=== PATIENT | male | born 1980 | race Caucasian/White ===

== ENCOUNTER 2019-05-12 11:20 | Emergency (ER) | payer BC ==
[2019-05-12 13:20] VITALS: BP 137/81
--- NOTE | 2019-05-12 13:39 | UC ---
Skin Complaint HPI - HPI Summary HPI Summary: inner aspect of left knee with possible infection. Noted pimple size area red, now much larger. red, raised , almost purple with blitering imminent. tendar with head. hot, not drainng. 6cm area round. takes daily med for colitis. - History of Current Complaint Chief Complaint: UCSkin Time Seen by Provider: 05/12/19 13:05 Stated Complaint: SKIN COMPLAINT Hx Obtained From: Patient Onset/Duration: Sudden Onset, Lasting Days Skin Exposure Onset/Duration: Days Ago Timing: Constant Onset Severity: Mild Current Severity: Moderate Pain Intensity: 3 - Allergy/Home Medications Allergies/Adverse Reactions: Allergies Allergy/AdvReac Type Severity Reaction Status Date / Time No Known Allergies Allergy Verified 05/12/19 13:21 Home Medications: Home Medications Mesalamine DR SERNA* [Mesalamine CAP* (formerly ASACOL TAB)*] 800 mg PO BID [History Confirmed 05/12/19] PMH/Surg Hx/FS Hx/Imm Hx Previously Healthy: Yes - Surgical History Surgical History: None - Family History Known Family History: Positive: Hypertension - Social History Alcohol Use: Daily Substance Use Type: None Smoking Status (MU): Never Smoked Tobacco Review of Systems All Other Systems Reviewed And Are Negative: Yes Musculoskeletal: Positive: Arthralgia, Myalgia Is Patient Immunocompromised?: No Physical Exam Triage Information Reviewed: Yes Appearance: Well-Appearing, Well-Nourished, Pain Distress Vital Signs: Initial Vital Signs Temp 98.9 F 05/12/19 13:12 Pulse 82 05/12/19 13:12 Resp 16 05/12/19 13:12 BP 137/81 05/12/19 13:12 Pulse Ox 98 05/12/19 13:12 Vital Signs Reviewed: Yes Eye Exam: Normal ENT Exam: Normal Dental Exam: Normal Neck exam: Normal Respiratory Exam: Normal Cardiovascular Exam: Normal Cardiovascular: Positive: RRR, No Murmur, Pulses Normal Abdominal Exam: Normal Musculoskeletal Exam: Normal Neurological Exam: Normal Psychological Exam: Normal Skin: Positive: Significant Lesion(s) - abscess from ingrown hair on left knee Course/Dx - Course Course Of Treatment: history obtained, exam performed, meds reviewed, treated for abscess - Differential Diagnoses - Skin Complaint Differential Diagnoses: Abscess - Diagnoses Provider Diagnosis: Abscess Discharge ED - Sign-Out/Discharge Documenting (check all that apply): Patient Departure All imaging exams completed and their final reports reviewed: No Studies - Discharge Plan Condition: Stable Disposition: HOME Prescriptions: Cephalexin CAP* [Keflex CAP*] 500 mg PO TID #21 cap Patient Education Materials: Abscess (ED) Referrals: René Clark MD [Primary Care Provider] - Additional Instructions: 1. Take the medication as prescribed. 2. Warm compresses to the area twice a day 3. FOllow up if not improving. - Billing Disposition and Condition Condition: STABLE Disposition: Home
== END 2019-05-12 13:46 | disposition home or self-care (01) ==
LOC: UCEAST 11:20
DX: L02.416 Cutaneous abscess of left lower limb (principal)
CPT/HCPCS: 99212; G0463

== ENCOUNTER 2019-05-14 18:27 | Inpatient (IN) | payer BC ==
--- NOTE | 2019-05-14 19:19 | ED ---
Lower Extremity - HPI Summary HPI Summary: Pt is a 38 y/o M presenting to the ED with a chief complaint of L knee pain initially onset about 1 week ago. He states it started looking like a pimple and then grew over the course of the next couple of days, encompassing the entire knee. He went to on 05/12/19 where he was given Keflex, but it has since become more swollen, red, and painful. Noted pt is slightly febrile on triage. - History of Current Complaint Chief Complaint: EDExtremityLower Stated Complaint: LT KNEE INFECTION PER PT Time Seen by Provider: 05/14/19 19:11 Hx Obtained From: Patient Mechanism Of Injury: Unknown Onset of Pain: Days Onset/Duration: Still Present Severity Initially: Moderate Severity Currently: Severe Pain Intensity: 7 Pain Scale Used: 0-10 Numeric Timing: Constant, Lasting Days Location: Is Discrete @ - L knee Associated Signs And Symptoms: Positive: Swelling, Redness, Fever, Knee Pain Aggravating Factor(s): Nothing Alleviating Factor(s): Nothing Able to Bear Weight: Yes - Allergies/Home Medications Allergies/Adverse Reactions: Allergies Allergy/AdvReac Type Severity Reaction Status Date / Time No Known Allergies Allergy Verified 05/14/19 18:46 PMH/Surg Hx/FS Hx/Imm Hx Previously Healthy: Yes Endocrine/Hematology History: Denies: Hx Diabetes Cardiovascular History: Denies: Hx Hypertension, Hx Pacemaker/ICD GI History: Reports: Other GI Disorders - ulcerative colitis History: Denies: Hx Renal Disease Sensory History: Denies: Hx Hearing Aid Psychiatric History: Denies: Hx Panic Disorder Infectious Disease History: No Infectious Disease History: Denies: Traveled Outside the [place] in Last 30 Days - Family History Known Family History: Positive: Hypertension - Social History Alcohol Use: Daily Hx Substance Use: No Substance Use Type: Reports: None Hx Tobacco Use: No Smoking Status (MU): Never Smoked Tobacco Review of Systems Positive: Fever Positive: Myalgia, Edema Positive: Other - erythema over L knee All Other Systems Reviewed And Are Negative: Yes Physical Exam - Summary Physical Exam Summary: Appearance: Well-appearing, Well-nourished, lying in bed comfortably Skin: Warm, dry. Eyes: sclera anicteric, no conjunctival pallor ENT: mucous membranes moist, pharynx appears normal Neck: Supple, nontender Respiratory: Clear to auscultation, no signs of respiratory distress Cardiovascular: Normal S1, S2. No murmurs. Normal distal pulses in tibial and radial bilaterally. Abdomen: Soft, nontender, normal active bowel sounds present Musculoskeletal: Strength/ROM Intact. LLE: grape-sized abscess of the overlying skin showing purulent drainage and breakdown. There is cellulitis extending proximally about 2[address] up the posterior medial thigh and about 1/[address] the leg. Neurological: A&Ox3, awake and alert, mentation is normal, speech is fluent and appropriate Psychiatric: affect is normal, does not appear anxious or depressed Triage Information Reviewed: Yes Vital Signs On Initial Exam: Initial Vitals Temp Pulse Resp BP Pulse Ox 100.6 F 102 18 129/83 97 05/14/19 18:41 05/14/19 18:41 05/14/19 18:41 05/14/19 18:41 05/14/19 18:41 Vital Signs Reviewed: Yes Procedures - Sedation Patient Received Moderate/Deep Sedation with Procedure: No Diagnostics - Vital Signs Vital Signs Temp Pulse Resp BP Pulse Ox 05/14/19 18:41 100.6 F 102 18 129/83 97 - Laboratory Result Diagrams: 05/15/19 05:49 05/14/19 19:28 Lab Statement: Any lab studies that have been ordered have been reviewed, and results considered in the medical decision making process. Lower Extremity Course/Dx - Course Course Of Treatment: Pt is a 38 y/o M presenting to the ED with a chief complaint of L knee pain onset 1wk ago that began looking like a small pimple but has grown to encompass his whole knee. He reports pain, edema, and erythema to the area, and has a slight fever on triage. Pt placed on Keflex on 05/12/19 but sx have worsened. PMHx includes ulcerative colitis. On exam on the LLE, there is a grape-sized abscess of the overlying skin showing purulent drainage and breakdown. There is cellulitis extending proximally about 2/[address] up the posterior medial thigh and about 1/[address] the leg[address] The abscess was incised with an 11 blade and drained a small amount of pus; this appears to be more of a phlegmon than a true abscess. Discussed pt with Dr. Willis at 2031 who will accept to [facility] with dx of cellulitis. - Diagnoses Provider Diagnoses: Cellulitis Discharge ED - Sign-Out/Discharge Documenting (check all that apply): Patient Departure - Discharge Plan Condition: Stable Disposition: ADMITTED TO [facility] - Billing Disposition and Condition Condition: STABLE Disposition: Admitted to [facility] - Attestation Statements Document Initiated by Fadye: Yes Documenting Scribe: Ysabel Wright Provider For Whom Stevie is Documenting (Include Credential): Edil Simmons MD. Scribe Attestation: Ysabel Hudson scribed for Edil Simmons MD. on 05/15/19 at 0626. Scribe Documentation Reviewed: Yes Provider Attestation: The documentation as recorded by the Ysabel pacheco accurately reflects the service I personally performed and the decisions made by Edil law MD. Status of Scribe Document: Viewed
[2019-05-14] MEDS: NS 0.9% 1000 ML** 1,000 ML IV.FLUID IV ONE (19:22)
[2019-05-14] MEDS ORDERED: Vancomycin(*) 1,500 MG in NS 0.9% 250 ML* 250 ML IVPB ONE (19:40)
[2019-05-14 19:50] LABS: ABS Eosinophils 0.1 10^3/ul (0-0.6); ABS Lymphocytes 0.9 10^3/ul (1.0-4.8); ABS Monocytes 0.6 10^3/ul (0-0.8); Eosinophil % 1.1 %; Hematocrit 43 % (42-52); Hemoglobin 14.7 g/dL (14.0-18.0); Lymphocyte % 11.5 %; Mean Corpuscular HGB Conc 34 g/dL (31-36); Mean Corpuscular Hemoglobin 30 pg (27-31); Mean Corpuscular Volume 87 fL (80-94); Mean Platelet Volume 7.6 fL (7.4-10.4); Platelet Count 207 10^3/uL (150-450); Red Blood Count 4.92 10^6 /uL (4.18-5.48); Red Cell Distribution Width 14 % (10-15); White Blood Count 7.6 10^3/uL (3.5-10.8)
[2019-05-14 20:03] LABS: Activated Partial Thrombo Time 34.4 seconds (26.0-38.0); INR 1.13 (0.82-1.09)
[2019-05-14 20:05] LABS: Albumin 3.9 g/dL (3.2-5.2); Albumin/Globulin Ratio 1.2 (1-3); BUN/Creatinine Ratio 20.5 (8-20); C Reactive Protein 127.55 mg/L (<8.01); Calcium 9.3 mg/dL (8.6-10.3); EGFR African American 116.7 (>60); EGFR Non-African American 96.4 (>60); Globulin 3.3 g/dL (2-4); Potassium 3.8 mmol/L (3.5-5.0); Total Bilirubin 1.1 mg/dL (0.2-1.0); Total Protein 7.2 g/dL (6.4-8.9)
[2019-05-14 20:07] LABS: Troponin I 0.01 ng/mL (<0.03)
[2019-05-14] MEDS ORDERED: Acetaminophen TAB* 325 MG PO PRN (20:55)
[2019-05-14] MEDS ORDERED: oxyCODONE/Acetamin 5/325 MG* TAB PO PRN (20:55)
[2019-05-14] MEDS ORDERED: NS 0.9% 1000 ML** 1,000 ML IV SCH (21:00)
[2019-05-14 21:01] LABS: Urine Appearance Clear; Urine Bilirubin Negative (Negative); Urine Blood Negative (Negative); Urine Color Yellow; Urine Glucose Negative (Negative); Urine Ketones Negative (Negative); Urine Nitrite Negative (Negative); Urine Protein Negative (Negative); Urine Specific Gravity 1.018 (1.010-1.030); Urine Urobilinogen Negative (Negative)
[2019-05-14 21:40] LABS: Erythrocyte Sed Rate 28 mm/Hr (0-14)
[2019-05-14] MEDS: Heparin VIAL(*) 5000 UNITS/ML VIAL (FIVE THOUSAND) SUBCUT SCH (22:40)
[2019-05-14] MEDS ORDERED: Vancomycin per Pharmacy* NOTE FOLLOW UP SCH (23:00)
[2019-05-14] MEDS ORDERED: Piperacillin/Tazobac ADVAN(*) 3.375 GM in NS 0.9% 100 ML* 100 ML IVPB ONE (23:00)
[2019-05-14] MEDS ORDERED: Zosyn per Pharmacy* NOTE FOLLOW UP SCH (23:00)
--- NOTE | 2019-05-14 23:21 | HP ---
History of Present Illness - History of Present Illness Reason for Visit: knee cellulitis History of Present Illness: 38 mauro old male iwth history of IBD on mesalamine who came in with worsening cellulitis of his left knee. Started off as a pimple a few days ago. He went to urgent care and was prescribed keflex. 2 days later, the erythema and swelling progressed to involve almost his entire left leg. In addition he started having fevers and chills. In the ED, he had a low grade temperature, vitals are otherwise normal. Initial labs are normal. I&D done in the ED with little drainage. - Past Medical History Gastrointestinal: Inflam bowel disease Review of Systems - Measurements Intake and Output: Intake and Output Last 24 Hours 05/12/19 05/13/19 05/14/19 05/15/19 06:59 06:59 06:59 06:59 Intake Total 1999 Balance 1999 Weight 180 lb Intake: IV Fluids 1999 - Review of Systems Constitutional Symptoms: Positive: Fever, Night Sweats Dermatology: Positive: Rash Negative: Normal, Skin Lesions, Cancer, Skin Lumps, Other HEENT: Negative: Normal, Change in Hearing, Vertigo, Dental Problems, Tinnitus, Sinus Problem, Other Eyes: Negative: Normal, Change in Vision, Double Vision, Eye Pain, Glaucoma, Cataract, Contacts or Glasses, Other Thyroid: Negative: Normal, Goiter, Thyroid Nodule, Cold Intolerance, Heat Intolerance , Sweatiness, Tremor, Frequent Defecation, Constipation, Palpitations, Primary Hypothyroidism, Primary Hyperthyroidism, Weight Loss, Weight Gain, Change in Skin/Hair, Change in Menstruation, Radiation Exposure, Other Pulmonary: Negative: Normal, Cough, Sputum, Hemoptysis, Wheezing, Respiratory Distress, Shortness of Breath, COPD, Asthma, Exercise Intolerance, Home Oxygen, Other Cardiology: Negative: Normal, Chest Pain, Shortness of Breath, Palpitations, Swelling of Ankles, Peripheral Vascular Dis, Edema, Faintness, Syncope, Claudication, Proximal NocturnalDyspnea, Orthopnoea, Other Gastroenterology: Negative: Normal, Abdominal Pain, Nausea, Vomiting, Anorexia, Indigestion, Difficulty Swallowing, Heartburn, Constipation, Diarrhea, Blood in Stools, Change in Bowel Habits, Haematemesis, Melena, Other Musculoskeletal: Negative: Joint Pain, Joint Stiffness, Arthritis, Osteoporosis, Low Back Pain , Sciatica, Joint Deformities, Kyphoscoliosis, Other Endocrinology: Negative: Normal, Thyroid Problems, Adrenal Problems, Gonadal Problems, Family Hx Endocrine Disorders, Obesity, Diabetes Mellitus, Hyperglycemia, Hx Hypoglycemia, Diabetic Foot Ulcers, Calluses, Hirsutism, Menstrual Abnormalities , Polydipsia, Polyuria, Gonadal Problems, Gynecomastia, Pituitary disease, Other Hematologic/Lymphatic: Negative: Anemia, Easy Bruising, Hx Leukemia, Hx Lymphoma, Use of Anticoagulant, Use of Antiplatelet Drugs, Other Neurology: Negative: Normal, Headache, Migraines, Change in Vision, Diplopia, Dizziness , Change in Balancing, Change in Coordination, Change in Memory, Change in Speech, Change in Sphincter Function, Change in Walking, Numbness\Paresthesiae, Unexplained Weakness, Hx of Stroke\TIA, Hx of Seizures, Other Psychiatry: Negative: Normal, Depression, Anxiety, Depressed Mood, Anhedonia, Sexual Dysfunction, Weight Change, Guilt Feelings, Tearfulness, Unusual Fatigue, Unusual Anxiety, Suicidal Ideation, Hypomania, Eating Disorders, Other Objective Active Medications: Acetaminophen (Tylenol Tab*) 650 mg PO Q4H PRN PRN Reason: MILD PAIN or TEMP > 100.4 Heparin Sodium (Porcine) (Heparin Vial(*)) 5,000 units SUBCUT Q8HR [facility] Last Admin: 05/14/19 22:40 Dose: 5,000 units Sodium Chloride (Ns 0.9% 1000 Ml) 1,000 mls @ 100 mls/hr IV PER RATE [facility] Last Admin: 05/14/19 22:40 Dose: 100 mls/hr Piperacillin Sod/Tazobactam (Sod 3.375 gm/ Sodium Chloride) 100 mls @ 200 mls/ hr IVPB ONCE ONE Stop: 05/14/19 23:29 Mesalamine (Mesalamine Dr Cap*) 800 mg PO BID [facility] Last Admin: 05/14/19 22:48 Dose: 800 mg Oxycodone/Acetaminophen (Percocet 5/325 Tab*) 1 tab PO Q4H PRN PRN Reason: PAIN - SEVERE Pharmacy Consult (Vancomycin Per Pharmacy*) 1 note FOLLOW UP .VANC PER PHARMACY [facility]; Protocol Pharmacy Consult (Zosyn Per Pharmacy*) 1 note FOLLOW UP .ZOSYN PER PHARMACY [facility] Vital Signs - 8 hr 05/14/19 05/14/19 05/14/19 18:41 19:31 20:00 Temperature 100.6 F Pulse Rate 102 98 98 Respiratory 18 Rate Blood Pressure 129/83 (mmHg) O2 Sat by Pulse 97 99 99 Oximetry 05/14/19 05/14/19 05/14/19 20:14 21:34 21:41 Temperature 99.4 F Pulse Rate 96 126 Respiratory Rate Blood Pressure 130/84 135/81 (mmHg) O2 Sat by Pulse 99 97 Oximetry 05/14/19 21:50 Temperature 100.4 F Pulse Rate 110 Respiratory 20 Rate Blood Pressure 136/69 (mmHg) O2 Sat by Pulse 100 Oximetry Oxygen Devices in Use Now: None Eyes: No Scleral Icterus, PERRLA Ears/Nose/Mouth/Throat: NL Teeth, Lips, Gums, Clear Oropharnyx, Mucous Membranes Moist Neck: NL Appearance and Movements; NL JVP, Trachea Midline Respiratory: Symmetrical Chest Expansion and Respiratory Effort, Clear to Auscultation, Clear to Percussion Cardiovascular: NL Sounds; No Murmurs; No JVD, RRR, No Edema Abdominal: NL Sounds; No Tenderness; No Distention, No Hepatosplenomegaly Lymphatic: No Cervical Adenopathy Skin: - - erythema and edema involving his left lower EXT, from thigh to ankle. Neurological: Alert and Oriented x 3, NL Sensation Result Diagrams: 05/14/19 19:28 05/14/19 19:28 Assess/Plan/Problems-Billing Assessment: - Patient Problems (1) Left leg cellulitis Current Visit: Yes Status: Acute Code(s): L03.116 - CELLULITIS OF LEFT LOWER LIMB SNOMED Code(s): 897295930 Comment: failed outpatient therapy vanc and zosyn, and fluids blood cultures pending US (2) IBD (inflammatory bowel disease) Current Visit: Yes Status: Acute Code(s): K52.9 - NONINFECTIVE GASTROENTERITIS AND COLITIS, UNSPECIFIED SNOMED Code(s): 59395381 Comment: mesalamine (3) Full code status Current Visit: Yes Status: Acute Code(s): Z78.9 - OTHER SPECIFIED HEALTH STATUS SNOMED Code(s): 350823535 (4) DVT prophylaxis Current Visit: Yes Status: Acute Code(s): Z29.9 - ENCOUNTER FOR PROPHYLACTIC MEASURES, UNSPECIFIED SNOMED Code(s): 577790370 Comment: heparin scc
[2019-05-15] MEDS: Vancomycin(*) 1,000 MG in NS 0.9% 250 ML* 250 ML IV SCH ×2 (04:04→12:18)
[2019-05-15] MEDS: ZOSYN 3.375 GM Q8H per EXTENDED INFUSION IVPB SCH ×4 (04:59→12:18)
[2019-05-15] MEDS: Heparin VIAL(*) 5000 UNITS/ML VIAL (FIVE THOUSAND) SUBCUT SCH ×3 (05:53→21:27)
[2019-05-15 06:10] LABS: ABS Eosinophils 0.1 10^3/ul (0-0.6); ABS Monocytes 0.5 10^3/ul (0-0.8); ABS Neutrophils 5.4 10^3/ul (1.5-7.7); Eosinophil % 1.3 %; Hematocrit 40 % (42-52); Hemoglobin 13.4 g/dL (14.0-18.0); Lymphocyte % 14.1 %; Mean Corpuscular HGB Conc 34 g/dL (31-36); Mean Corpuscular Hemoglobin 30 pg (27-31); Mean Corpuscular Volume 88 fL (80-94); Mean Platelet Volume 7.6 fL (7.4-10.4); Platelet Count 186 10^3/uL (150-450); Red Blood Count 4.49 10^6 /uL (4.18-5.48); Red Cell Distribution Width 13 % (10-15); White Blood Count 6.9 10^3/uL (3.5-10.8)
[2019-05-15 06:44] LABS: BUN/Creatinine Ratio 11.8 (8-20); Calcium 8.4 mg/dL (8.6-10.3); EGFR African American 121.4 (>60); EGFR Non-African American 100.3 (>60); Potassium 3.9 mmol/L (3.5-5.0)
--- NOTE | 2019-05-15 17:12 | PN ---
Subjective Date of Service: 05/15/19 Interval History: Patient tells me he feels well. Denies fever/chills, chest pain, difficulty breathing. Tells me he is unsure if the redness has gotten better. Does state that it's easier to bend his left knee now. Objective Active Medications: Acetaminophen (Tylenol Tab*) 650 mg PO Q4H PRN PRN Reason: MILD PAIN or TEMP > 100.4 Heparin Sodium (Porcine) (Heparin Vial(*)) 5,000 units SUBCUT Q8HR [facility] Last Admin: 05/15/19 14:46 Dose: 5,000 units Mesalamine (Mesalamine Dr Cap*) 800 mg PO BID [facility] Last Admin: 05/15/19 08:46 Dose: 800 mg Oxycodone/Acetaminophen (Percocet 5/325 Tab*) 1 tab PO Q4H PRN PRN Reason: PAIN - SEVERE Vital Signs - 8 hr 05/15/19 05/15/19 11:07 15:29 Temperature 99.0 F 98.9 F Pulse Rate 91 98 Respiratory 23 16 Rate Blood Pressure 122/67 142/66 (mmHg) O2 Sat by Pulse 97 97 Oximetry Oxygen Devices in Use Now: None Appearance: Thin, young white male, laying in hospital bed, appearing comfortable and in NAD Eyes: No Scleral Icterus, - - PERRL Ears/Nose/Mouth/Throat: Mucous Membranes Moist Neck: NL Appearance and Movements; NL JVP Respiratory: Symmetrical Chest Expansion and Respiratory Effort, Clear to Auscultation Cardiovascular: NL Sounds; No Murmurs; No JVD, RRR Abdominal: - - abd soft, nontender, nondistended Extremities: - - trace edema to left knee; erythema circumferentially around left leg to from upper thigh to ankle, more significant erythema around open wound on left knee; pus expressed from 2 cm diameter wound on knee consistent with previous lancing; knee quite tender; able to flex and extend knees without difficulty Result Diagrams: 05/15/19 05:49 05/15/19 05:49 Microbiology and Other Data: Microbiology 05/14/19 19:40 Skin and Soft Tissue MRSA/MSSA (PCR - Final Knee Left Mrsa Negative S.aureus Positive Gram Stain - Final Wound Culture - Preliminary Staphylococcus Aureus Assess/Plan/Problems-Billing Assessment: 38 yo white male with PMHx UC presents with left knee abscess with surrounding erythema. - Patient Problems (1) Left leg cellulitis Current Visit: Yes Status: Acute Code(s): L03.116 - CELLULITIS OF LEFT LOWER LIMB SNOMED Code(s): 488022663 Comment: -failed outpatient therapy of keflex -surrounding abscess at left knee which has been lanced in the ED -US soft tissue demonstrates no abscess -wound culture demonstrates MSSA -d/c vanco and zosyn, changing to cefazolin -fever <24 hours ago, will continue to monitor -consulted general surgery, hoping for further I&D -low suspicion for septic joint as patient is able to mobilize knee (2) Sepsis Current Visit: Yes Status: Acute Comment: -admitted with signs of sepsis 2/2 left leg cellulitis; tachycardia and fever -last fever <24 hours ago, will continue to monitor -tachycardia improving, still tachycardic at times -blood culture pending (3) Ulcerative colitis Current Visit: Yes Status: Acute Code(s): K51.90 - ULCERATIVE COLITIS, UNSPECIFIED, WITHOUT COMPLICATIONS SNOMED Code(s): 12986328 Comment: -continue home mesalamine (4) DVT prophylaxis Current Visit: Yes Status: Acute Code(s): Z29.9 - ENCOUNTER FOR PROPHYLACTIC MEASURES, UNSPECIFIED SNOMED Code(s): 736840147 Comment: -heparin subq (5) Full code status Current Visit: Yes Status: Acute Code(s): Z78.9 - OTHER SPECIFIED HEALTH STATUS SNOMED Code(s): 930224098 Status and Disposition: inpatient for IV antibiotics, anticipate d/c home, pending further medical improvement
--- NOTE | 2019-05-15 17:43 | CONSULT ---
<ShaheenDany silva A - Last Filed: 05/15/19 17:21> Consult Consult: Consultation General Surgery Diagnosis:Left Knee Infection Chief Complaint: Left Knee Pain HPI:38 yo male C/O Left knee pain x 1 week. Started with a small pimple on medial aspect left knee, yesterday had increased swelling, decreased range of motion, fever and pain. went to urgent care then to ED and was admitted. the wound was lanced, cx's sent and he was started on IV ABX, Zosyn. he reports improvement of his symptoms since the wound was opened, and ABX have started. 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 Trachea in midline, no JVD EOMI CHEST: CTA B/L CVS: RRR ABD: ND/NT M/S: Left Lower extremity medial aspect of left knee has half dollar sized open wound with visible purulence. Reduced ROM to flexion of 110 degrees. there is errythema superior to and distal to the knee. 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 PSYCH: AxO LABS: Vital Signs Temp 98.9 F 05/15/19 15:29 Pulse 98 05/15/19 15:29 Resp 16 05/15/19 15:29 BP 142/66 05/15/19 15:29 Pulse Ox 97 05/15/19 15:29 Intake & Output 05/14/19 05/15/19 05/15/19 18:59 06:59 18:59 Intake Total 3400 2019 Balance 3402019 Weight 180 lb 178 lb 6.4 oz Intake: IV Fluids 2000 IVPB 1400 ABX - VANCOMYCIN 1000 ABX - ZOSYN 400 Oral 0 2020 Other: # Voids 0 Sodium 139 mmol/L (135-145) 05/15/19 05:49 Potassium 3.9 mmol/L (3.5-5.0) 05/15/19 05:49 BUN 10 mg/dL (6-24) 05/15/19 05:49 Creatinine 0.85 mg/dL (0.67-1.17) 05/15/19 05:49 Calcium 8.4 mg/dL (8.6-10.3) L 05/15/19 05:49 AST 13 U/L (13-39) 05/14/19 19:28 ALT 14 U/L (7-52) 05/14/19 19:28 WBC 05/14/19 05/15/19 19:28 05:49 WBC 7.6 10^3/uL 10^3/uL 6.9 10^3/uL 10^3/uL (3.5-10.8) (3.5-10.8) Microbiology 05/14/19 19:40 Skin and Soft Tissue MRSA/MSSA (PCR - Final Knee Left Mrsa Negative S.aureus Positive Gram Stain - Final Wound Culture - Preliminary Staphylococcus Aureus ASSESSMENT: 38 yo male with above history. soft tissue necrotizing MSSA infection of the soft tissue medial aspect of the left knee , unsure of depth of collection or of possible joint involvement PLAN: CT scan will be ordered, Continiue IV Abx, will continue to follow, consider orthopedic evaluation due to proximity to the knee joint and question of joint involvement. Patient was also seen and examined by Dr Hernandez. <Johan Hernandez - Last Filed: 05/16/19 07:24> Consult Consult: I saw and evaluated the patient. Agree with NPP's note.
[2019-05-15] MEDS: ceFAZolin 1 GM ADVAN(*) 1 GM in NS 0.9% 50 ML* 50 ML IVPB SCH (18:23)
[2019-05-16] MEDS: ceFAZolin 1 GM ADVAN(*) 1 GM in NS 0.9% 50 ML* 50 ML IVPB SCH ×3 (02:30→18:14)
[2019-05-16] MEDS: Heparin VIAL(*) 5000 UNITS/ML VIAL (FIVE THOUSAND) SUBCUT SCH ×2 (06:19→14:23)
[2019-05-16] MEDS ORDERED: Lidocaine 2% 10 ML* VIAL INJ ONE (10:02)
[2019-05-16] MEDS ORDERED: Lidocaine 2% PF * 5 ML VIAL INJ ONE (11:00)
[2019-05-16] MEDS ORDERED: Vancomycin Trough Check NOTE FOLLOW UP ONE (11:30)
--- NOTE | 2019-05-16 12:19 | CONS ---
CONSULTATION REPORT: DATE OF CONSULT: 05/16/19 CHIEF COMPLAINT: Rule out left septic knee. ATTENDING ORTHOPEDIC PROVIDER: Dr. Rogelio Lara HISTORY: The patient is a 38-year-old male with history of IBD, on mesalamine, no other past medical history, who came into the emergency room with cellulitis of the left knee this started as what patient described to be a pimple on the anterior medial side of the left patella, which also involved redness almost to his entire left leg. He also reports fever and chills. Today, in the emergency room, abscess was lanced and the patient was placed on Ancef. He has since had drastic improvement of redness and pain. He is able to walk without pain. He is able to flex and extend the left knee without pain. He does have some tightness at the endpoint of flexion, but in general feels that the left knee is much improved. He has no pain when he is at rest with walking or within range of motion from roughly 0 to 110 degrees. PAST MEDICAL HISTORY: Inflammatory bowel disease. REVIEW OF SYSTEMS: General: Denies fever or chills. Extremities: Positive for draining left knee lesion with improvement of pain. Neuro: Denies any decreased sensation in bilateral lower extremities. Skin: Positive for draining lesion of left knee and redness of left leg. : Positive for inflammatory bowel disease. PHYSICAL EXAM: Vital Signs: Temperature 98.2, he has been afebrile over the past 24 hours, T-max was 100.6 on admission, pulse rate 79, respiratory rate 14 , oxygen saturation 96, blood pressure 114/68. General: Well-appearing in no acute distress, nontoxic appearing. HEENT: Normocephalic and atraumatic. Respiratory: Normal rate and effort of breathing. Abdomen: No obvious distention. Musculoskeletal: Moving bilateral upper extremities and right lower extremity well with skin envelope intact, no redness. Left Lower Extremity: The patient has demarcated lines on the proximal thigh and distal ankle where redness had previously seen. This is much reduced. There is very light pink discoloration around the knee. There is a small effusion at the knee. At anterior medial aspect of the knee, just medial to the patella, there is a nickel size draining lesion, draining serous fluid. I cannot express any further drainage. This area is tender to palpation. The remainder of the leg is nontender and there is no tenderness over the pink area. He is able to flex and extend the knee actively from 0 to 110 degrees without pain. He has slight pulling sensation at the knee when he tries to flex beyond 110 degrees. He has full nonpainful range of motion at digits, ankle, and hip. DIAGNOSTIC STUDIES: Soft tissue ultrasound: Soft tissue swelling, no discrete abscess seen. ASSESSMENT: Left leg cellulitis and superficial abscess. PLAN: The patient to be weightbearing as tolerated. Keep covered with gauze and carmela wrap. He can do warm soapy soaks 3 times a day. He should continue on antibiotics per the Hospitalist Service. Microbiology shows left knee growing Staph aureus and blood cultures with no growth to date. If he is no longer able to ambulate or has reduced range of motion or increased signs of infection , please contact Orthopedics. We will continue to follow him while he is in the hospital. If he develops any worsening pain, drainage, redness, fever, chills, inability to ambulate contact orthopedics. The patient was seen and examined alongside Dr Lara who developed this plan of care. PITO DEVLIN [id number]/[facility] #: [id number] COSME
[2019-05-16 13:16] LABS: C Reactive Protein 112.95 mg/L (<8.01)
[2019-05-16] MEDS ORDERED: Lidocaine 2.5%/Prilocain 2.5%* 5 GM TUBE TOPICAL ONE (14:54)
--- NOTE | 2019-05-16 15:30 | PN ---
Progress Note - Progress Note Date of Service: 05/23/19 SOAP: Subjective: NAD, comfortable in bed, reports LLE feeling better, still with reduced ROM, errythema improving [] Objective: WBC 05/14/19 05/15/19 19:28 05:49 WBC 7.6 10^3/uL 10^3/uL 6.9 10^3/uL 10^3/uL (3.5-10.8) (3.5-10.8) Vital Signs Temp 98.2 F 05/16/19 12:19 Pulse 86 05/16/19 12:19 Resp 14 05/16/19 12:19 BP 120/74 05/16/19 12:19 Pulse Ox 99 05/16/19 12:19 Intake & Output 05/15/19 05/16/19 05/16/19 18:59 06:59 18:59 Intake Total 3030 850 2220 Output Total 0 Balance 3030 850 2220 Intake: IV Fluids 410 ABX - PIPERACILLIN 100 ABX - VANCOMYCIN 250 NS (0.9%) 60 IVPB 250 ABX - VANCOMYCIN 250 TPN/PPN 600 Oral 2620 0 2220 Output: Urine 0 Other: # Bowel Movements 0 PEX: LLE: errythema reduced from prior exam last evening, flexion to 110 degrees Wound on medial aspect Left Patella with serous d/c on dressing, no gross drainage calf non tender [] Assessment: 38 yo male with open wound medial aspect left knee s/p incision/ drainage in ED which grew out MSSA, currently on Zosyn with improvement to surrounding errythema and increasing ROM of the knee. [] Plan: Pt has also been seen by orthopedics. based on location of wound and proximity to the knee joint will defer to their service for further management and treatment. []
[2019-05-16 16:11] VITALS: BP 141/69
--- NOTE | 2019-05-16 16:34 | CONSULT ---
Consult Consult: Consultation Patient: BRANDON ORLANDO /Age: 0612/02/1980 38 Medical Record#: [id number] Admission Date: 05/14/19 Provider: Ashlyn SHELDON CONSULTATION REPORT: DATE OF CONSULT: 05/16/19 CHIEF COMPLAINT: Rule out left septic knee. ATTENDING ORTHOPEDIC PROVIDER: Dr. Rogelio Lara HISTORY: The patient is a 38-year-old male with history of IBD, on mesalamine, no other past medical history, who came into the emergency room with cellulitis of the left knee this started as what patient described to be a pimple on the anterior medial side of the left patella, which also involved redness almost to his entire left leg. He also reports fever and chills. Today, in the emergency room, abscess was lanced and the patient was placed on Ancef. He has since had drastic improvement of redness and pain. He is able to walk without pain. He is able to flex and extend the left knee without pain. He does have some tightness at the endpoint of flexion, but in general feels that the left knee is much improved. He has no pain when he is at rest with walking or within range of motion from roughly 0 to 110 degrees. PAST MEDICAL HISTORY: Inflammatory bowel disease. REVIEW OF SYSTEMS: General: Denies fever or chills. Extremities: Positive for draining left knee lesion with improvement of pain. Neuro: Denies any decreased sensation in bilateral lower extremities. Skin: Positive for draining lesion of left knee and redness of left leg. : Positive for inflammatory bowel disease. PHYSICAL EXAM: Vital Signs: Temperature 98.2, he has been afebrile over the past 24 hours, T-max was 100.6 on admission, pulse rate 79, respiratory rate 14, oxygen saturation 96, blood pressure 114/68. General: Well- appearing in no acute distress, nontoxic appearing. HEENT: Normocephalic and atraumatic. Respiratory: Normal rate and effort of breathing. Abdomen: No obvious distention. Musculoskeletal : Moving bilateral upper extremities and right lower extremity well with skin envelope intact, no redness. Left Lower Extremity: The patient has demarcated lines on the proximal thigh and distal ankle where redness had previously seen. This is much reduced. There is very light pink discoloration around the knee. There is a small effusion at the knee. At anterior medial aspect of the knee, just medial to the patella, there is a nickel size draining lesion, draining serous fluid. I cannot express any further drainage. This area is tender to palpation. The remainder of the leg is nontender and there is no tenderness over the pink area. He is able to flex and extend the knee actively from 0 to 110 degrees without pain. He has slight pulling sensation at the knee when he tries to flex beyond 110 degrees. He has full nonpainful range of motion at digits, ankle, and hip. DIAGNOSTIC STUDIES: Soft tissue ultrasound: Soft tissue swelling, no discrete abscess seen. ASSESSMENT: Left leg cellulitis and superficial abscess. PLAN: The patient to be weightbearing as tolerated. Keep covered with gauze and carmela wrap. He can do warm soapy soaks 3 times a day. He should continue on antibiotics per the Hospitalist Service. Microbiology shows left knee growing Staph aureus and blood cultures with no growth to date. If he is no longer able to ambulate or has reduced range of motion or increased signs of infection, please contact Orthopedics. We will continue to follow him while he is in the hospital. If he develops any worsening pain, drainage, redness, fever, chills, inability to ambulate contact orthopedics. The patient was seen and examined alongside Dr Lara who developed this plan of care. ATTENDING ADDENDUM: I saw and examineD the patient with PITO Garcia. Please see her consultation note above for full details. In short, cellulitis is much improved and there is no evidence of septic arthritis given his painless , full range of motion and ability to walk. I agree with the above findings and plan, which I formulated. Rogelio Lara MD
--- NOTE | 2019-05-16 23:20 | DS ---
CC: Dr. Clark * DISCHARGE SUMMARY: DATE OF ADMISSION: 05/14/19 DATE OF DISCHARGE: 05/16/19 PRIMARY CARE PROVIDER: Dr. Clark. CONSULTING GENERAL SURGEON: Dr. Hernandez. CONSULTING ORTHOPEDIC SURGEON: Dr. Self. ATTENDING PROVIDER: Pernell Christie MD * (DICTATED BY PITO PURI) PRIMARY DIAGNOSES: 1. Left leg cellulitis, surrounding abscess. 2. Sepsis secondary to cellulitis, improving. SECONDARY DIAGNOSIS: Ulcerative colitis. STUDIES WHILE IN THE HOSPITAL: Soft tissue ultrasound on 05/15/19, soft tissue swelling, no discrete abscess seen. PERTINENT LAB DATA: White blood cell count 6.9 on 05/15/19. CRP on the day of admission 127.55, then 11.95 on 05/15/19. HISTORY OF PRESENT ILLNESS/HOSPITAL COURSE: Blake Dunne is a 38-year-old white male with past medical history of ulcerative colitis, who presented to the emergency department due to worsening erythema surrounding his left knee. He was seen in the Urgent Care office and was prescribed Keflex and advised to apply moist heat. The redness continued to worsen despite the Keflex though he was able to bring the abscess to an opening by just applying moist heat. It was lanced further in the emergency department and possible purulent discharge was expressed. He initially presented with signs of sepsis given that he had a fever and tachycardia. Both of these signs resolved by the time of discharge. He was afebrile for over 24 hours. He never had a leukocytosis and his CRP did begin to downtrend. His erythema was minimally improved. Edema around the knee was greatly improved surrounding the abscess. The patient was now able to ambulate and able to mobilize his joint more freely without pain. He was seen by General Surgery in consultation for further incision and drainage, however, due to the proximity of the knee, it was recommended Orthopedic Surgery to see the patient. Orthopedic Surgery did not recommend further I and D and recommended daily soaks. Dr. Hernandez did recommend the patient to follow up at the clinic to follow his wound further. During his hospital stay, his wound culture demonstrated methicillin-sensitive Staph aureus. Initially, he was started on vancomycin and Zosyn and once the culture had returned, he was switched to cefazolin. His sensitivities did demonstrate sensitivity to cefazolin. The patient's blood cultures had no growth to date. PHYSICAL EXAMINATION ON THE DAY OF DISCHARGE: General: Thin, young, white male , lying in the hospital bed, appearing comfortable in no acute distress. Eyes: PERRLA. Sclerae anicteric. ENT: Mucous membranes are moist. Lungs: Clear to auscultation throughout. Cardio: Regular rate and rhythm without murmurs, rubs , or gallops. Abdomen: Soft, nontender, nondistended. Extremities: No clubbing, cyanosis, or edema. Musculoskeletal: Full active range of motion of both bilateral knees and hips and ankles. Skin: Diffuse blanchable erythema from the medial thigh down to circumferentially around the ankle. Overall improvement than prior. The erythema is less dark. There is more significant erythema immediately around the 2 cm diameter wound on the medial aspect of the knee, which is tender to palpation, however, not fluctuant. There was purulent drainage expressed. Neuro: The patient is alert and oriented x3. No focal deficits. Able to move all extremities. No tremors. DISCHARGE PLAN: Diet: Regular, unrestricted diet. Activity: The patient may return to normal activity as tolerated. The patient was advised to soak with warm water and mild soap twice a day. Advised to elevate his left leg as much as possible. He was offered a work excuse and the patient declined the need. The patient was referred to the wound clinic and was advised to follow up with his primary care provider within a week as well. He was advised to start taking his Keflex tonight until completion of the prescription. He did advise to return to the emergency department if he is experiencing streaking up the leg, worsening erythema or swelling, fever or chills, inability to bend the knee and/or difficulty ambulating. CONTINUED HOME MEDICATIONS: 1. Mesalamine 2.4 g p.o. b.i.d. 2. Mesalamine suppository 1000 mg per rectum daily. DISCHARGE MEDICATIONS: 1. Keflex 500 mg p.o. 4 times a day x33 doses. 2. Acetaminophen 650 mg p.o. q.4 hours p.r.n. pain. CONDITION ON DISCHARGE: Stable. DISPOSITION: Home. TIME SPENT: Approximately 40 minutes was spent on this discharge, approximately half that time spent at the bedside evaluating the patient, discussing the plan of care. MATHIEU US, PITO [id number]/[facility] #: [id number] [facility] CENTERGabby
== END 2019-05-16 18:05 | disposition home or self-care (01) | DRG 720 ==
LOC: ED 18:27 → MED 20:55
PROVIDERS: ADMIT Student in an Organized Health Care Education/Training Program; ATTEND Internal Medicine
DX: A41.9 Sepsis, unspecified organism (principal); L03.116 Cellulitis of left lower limb; L02.416 Cutaneous abscess of left lower limb; K51.90 Ulcerative colitis, unspecified, without complications; K52.9 Noninfective gastroenteritis and colitis, unspecified; Z79.899 Other long term (current) drug therapy; Z82.49 Family history of ischemic heart disease and other diseases of the circulatory system
CPT/HCPCS: 36415; 80048; 80053; 80202; 81003; 83605; 84484; 85025; 85610; 85652; 85730; 86140; 87040; 87070; 87077; 87186; 87205; 87640; 87641; 99284; A9270-GY; J0690; J1644; J2543; J3370